=== PATIENT | female | born 1955 ===

== ENCOUNTER 2023-06-07 14:49 | Outpatient (CLI) | payer MEDICARE, SELFPAY ==
[2023-06-07 15:03] LABS: Basophils Percent Auto 0.4 % (0.2-1.2); Eosinophils Percent Auto 0.1 % (0-4.4); Hematocrit 44.5 % (37.0-47.0); Hemoglobin 14.8 g/dL (12.0-15.0); Immature Granulocyte Absolute 0.03 K/mm3 (0.00-0.031); Immature Granulocyte Percent A 0.4 % (0-0.5); Lymphocytes Percent Auto 30.4 % (18.3-44.2); Mean Corpuscular HGB Conc 33.3 g/dl (32-36); Mean Corpuscular Hemoglobin 27.8 pg (26-34); Mean Corpuscular Volume 83.5 fl (80-100); Mean Platelet Volume 9.2 fl (7.4-10.4); Monocytes Absolute Auto 0.4 K/mm3 (0.1-0.6); Monocytes Percent Auto 6.4 % (2.6-8.5); Neutrophils Absolute Auto 4.3 K/mm3 (1.3-6.7); Neutrophils Percent Auto 62.3 % (45.5-73.1); Platelet Count Result 191 k/mm3 (150-375); Red Blood Count 5.33 M/mm3 (4.2-5.4); Red Cell Distribution Width 12.4 % (11.5-14.5); White Blood Count 6.9 K/mm3 (4.5-10.0)
[2023-06-07 16:32] LABS: Alanine Aminotransferase 26 U/L (6-35); Albumin Level 4.5 g/dL (3.5-5.1); Alkaline Phosphatase 51 U/L (38-126); Anion Gap 7 mmol/L (8-16); Aspartate Amino Transferase 28 U/L (14-36); Bilirubin,Total 0.6 mg/dL (0.2-1.3); Blood Urea Nitrogen 19 mg/dL (7-17); Calcium 9.4 mg/dL (8.4-10.2); Carbon Dioxide 28 mmol/L (22-30); Chloride 102 mmol/L (98-107); Estimated Glomerular Filt Rate 55; Glucose 105 mg/dL (65-110); Potassium 3.9 mmol/L (3.4-5.0); Sodium 137 mmol/L (137-145)
[2023-06-10 11:45] LABS: Erythropoietin (EPO) 9.1 mIU/mL (2.6-18.5)
== END 2023-06-07 14:50 | disposition home or self-care (01) ==
PROVIDERS: PCP Internal Medicine; Visit Provider Internal Medicine Hematology & Oncology
DX: D75.1 Secondary polycythemia (principal)
CPT/HCPCS: 36415; 80053; 82668; 85025

== ENCOUNTER 2025-05-22 22:36 | Emergency (ER) | payer MEDICARE, SELFPAY ==
--- NOTE | ~2025-05-22 | CT_ITS ---
CT of the Abdomen and Pelvis: Indication: Pelvic pain, incontinence Technique: 2.5 mm axial scans were obtained through the abdomen and pelvis following intravenous adm inistration of 100 cc of Omnipaque 350. Dose reduction technique was used on this scan by utilizing a utomated exposure control and iterative reconstruction technique. The dose-length product (DLP) was 3 18.24 mGy-cm. Findings: Scans through the lung bases are unremarkable. The liver, spleen, pancreas, adrenals and kidneys are within normal limits. Cholecystectomy clips are present. No evidence of aortic aneurysm. No lymphadenopathy. No bowel obstruction or bowel wall thickening. There is no evidence to suggest acute appendicitis. Images through the pelvis were performed. Tiny bubbles of air present in the urinary bladder. 2.6 cm left adnexal cyst present. No ascites. Impression: 2.6 cm left adnexal cyst. Tiny bubble of air in the urinary bladder. Correlate for recent instrumentation. Reviewed, dictated and finalized at [facility]. Impression: 2.6 cm left adnexal cyst. Tiny bubble of air in the urinary bladder. Correlate for recent instrumentation .
[2025-05-22 22:51] VITALS: BP 135/81; PULSE 87; RESP 14; TEMP 36.5; O2SAT 100
--- NOTE | 2025-05-23 00:51 | ED.GENADULT ---
HPI - General Adult General Chief complaint: Urogenital-Female Stated complaint: uti Time Seen by Provider: 05/23/25 00:22 History of Present Illness HPI narrative: 70-year-old female presents emergency department for evaluation for issues with fecal incontinence and urinary incontinence. Patient states that she has had these issues for approximately the last 6 months. Patient has had follow-up with her physicians for this but states she has never had a pelvic exam or rectal exam. Patient states that she feels that she spends a lot of time on the toilet some mornings and feels that she has incontinence to stool afterwards. Patient also states she does have history of urinary incontinence. Patient does have prior history of bladder sling and has had follow-up gynecology for prolapse issues previously. Related Data Home Medications ?Medication ?Instructions ?Recorded ?Confirmed ?Last Taken ?Type alendronate 70 mg tablet 70 mg PO WEEKLY 12/13/22 12/13/22 Unknown History aspirin 81 mg tablet,delayed 81 mg PO DAILY 12/13/22 12/13/22 Unknown History release cholecalciferol (vitamin D3) 125 125 mcg PO DAILY 12/13/22 12/13/22 Unknown History mcg (5,000 unit) capsule cyanocobalamin (vitamin B-12) 5,000 mcg PO DAILY 12/13/22 12/13/22 Unknown History 5,000 mcg capsule ferrous sulfate 325 mg (65 mg 325 mg PO DAILY 12/13/22 12/13/22 Unknown History iron) tablet krill oil 500 mg capsule mg PO 12/13/22 12/13/22 Unknown History levothyroxine 50 mcg tablet 50 mcg PO DAILY 12/13/22 12/13/22 Unknown History (Synthroid) montelukast 10 mg tablet 10 mg PO DAILY 12/13/22 12/13/22 Unknown History rosuvastatin 20 mg tablet 20 mg PO DAILY 12/13/22 12/13/22 Unknown History vitamin E (dl, acetate) 180 mg 180 mg PO DAILY 12/13/22 12/13/22 Unknown History (400 unit) capsule Allergies Allergy/AdvReac Type Severity Reaction Status Date / Time No Known Allergies Allergy Verified 05/22/25 22:54 Review of Systems Review of Systems: All systems reviewed & are unremarkable except as noted in HPI and below PMFSH Past Medical History Medical History (Updated 05/23/25 @ 01:21 by Kevin Mcdonnell MD) Screening mammogram, encounter for Overactive bladder Hypertension High cholesterol Herpes Hx of [facility] use of blood thinners Osteoporosis Hypothyroidism Sinusitis Surgical History Surgical History History of appendectomy History of suburethral sling procedure (~1992) removal in 1993 History of bilateral breast reduction surgery (~1979) History of cholecystectomy (~1977) History of hernia repair (~1961) Family History Family History Father Hypertension Heart disease Social History Social History (Updated 12/13/22 @ 13:25 by EUGENIO [place]) Smoking status: Never smoker Alcohol intake: never Substance use: never Substance use type: does not use Living arrangements: other Additional living arrangements comments: Occupation/Education: retired Gender identity (if verbalized by the patient): Female Sexual Orientation (if Verbalized by the Patient): Straight or Heterosexual Exam Narrative: APPEARANCE: Well appearing, no pain, no distress, well-nourished. HEAD: normocephalic, atraumatic. EYES: PERRLA/EOMI, conjunctivae clear. NOSE: Normal no drainage EARS:TMS clear with good light reflex. THROAT: Pharynx clear, no exudate. NECK: Supple. No adenopathy, no masses. RESPIRATORY: Airway patent, respirations nonlabored. Clear to auscultation bilaterally, no rales, rhonchi, wheezing. CARDIOVASCULAR: Regular rate and rhythm without murmurs rubs or gallops. ABDOMINAL: Soft, nontender, nondistended, normal bowel sounds MUSCULOSKELETAL: Moves all extremities. Strength/ROM intact, No edema, No calf tenderness. NEURO: Alert. Cranial nerves II through XII intact. Good gait. Good coordination SKIN: Warm, dry. Normal Color Pelvic exam and rectal exam. No rectal or uterine prolapse Course Vital Signs Vital signs: Vital Signs Temperature 97.7 F 05/22/25 22:51 Pulse Rate 87 05/22/25 22:51 Respiratory Rate 14 05/22/25 22:51 Blood Pressure 135/81 05/22/25 22:51 Pulse Oximetry 100 05/22/25 22:51 Oxygen Delivery Room Air 05/22/25 22:51 Temperature 97.7 F 05/22/25 22:51 Pulse Rate 69 05/23/25 04:00 Respiratory Rate 17 05/23/25 04:00 Blood Pressure 118/79 05/23/25 04:00 Pulse Oximetry 100 05/23/25 04:00 Oxygen Delivery Room Air 05/22/25 22:51 Medical Decision Making MDM Narrative Medical decision making narrative: 70-year-old female presents emergency department for evaluation for rectal prolapse. Patient is also complaining of urinary symptoms. Patient is currently afebrile with no leukocytosis hemoglobin of 12.4. INR is 1.1, patient has no acute abnormalities on her CMP UA was positive for infection. CT of the pelvis does show some air within the bladder. No other acute abnormality. Patient was encouraged of close follow-up with GI and with her primary care physician and OB Gyne Differential Diagnosis Differential Diagnosis: Uterine prolapse, rectal prolapse, abscess, urinary tract infection colitis, diverticulitis Vital Signs Vital Signs: Vital Signs Temperature 97.7 F 05/22/25 22:51 Pulse Rate 87 05/22/25 22:51 Respiratory Rate 14 05/22/25 22:51 Blood Pressure 135/81 05/22/25 22:51 Pulse Oximetry 100 05/22/25 22:51 Oxygen Delivery Room Air 05/22/25 22:51 Temperature 97.7 F 05/22/25 22:51 Pulse Rate 69 05/23/25 04:00 Respiratory Rate 17 05/23/25 04:00 Blood Pressure 118/79 05/23/25 04:00 Pulse Oximetry 100 05/23/25 04:00 Oxygen Delivery Room Air 05/22/25 22:51 Lab Data Lab results reviewed: Yes I reviewed the patient's lab results. 05/23/25 01:22 05/23/25 01:22 Labs: Lab Results 05/23/25 05/23/25 Range/Units 00:39 01:22 WBC 7.3 (4.5-10.0) K/mm3 RBC 4.40 (4.2-5.4) M/mm3 Hgb 12.4 (12.0-15.0) g/dL Hct 37.9 (37.0-47.0) % MCV 86.1 (80-100) fl MCH 28.2 (26-34) pg MCHC 32.7 (32-36) g/dl RDW 13.5 (11.5-14.5) % Plt Count 171 (150-375) k/mm3 MPV 9.5 (7.4-10.4) fl Immature Gran % (Auto) 0.4 (0-0.5) % Neut % (Auto) 63.2 (45.5-73.1) % Lymph % (Auto) 26.3 (18.3-44.2) % Wallace % (Auto) 9.2 H (2.6-8.5) % Eos % (Auto) 0.4 (0-4.4) % Baso % (Auto) 0.5 (0.2-1.2) % Lymph # (Auto) 1.92 (0.9-3.2) K/mm3 Wallace # (Auto) 0.7 H (0.1-0.6) K/mm3 Eos # (Auto) 0.0 (0-0.3) K/mm3 Baso # (Auto) 0.0 (0.0-0.1) K/mm3 Abs Immat Gran (auto) 0.03 (0.00-0.031) K/mm3 Absolute Neuts (auto) 4.6 (1.3-6.7) K/mm3 Absolute Nucleated RBC 0.000 (0.0-0.012) K/mm3 Nucleated RBC % 0.0 (0.0-0.2) % PT 14.1 (11.1-14.7) Seconds INR 1.1 APTT 30.0 (22.3-36.8) Seconds Sodium 134 L (137-145) mmol/L Potassium 3.5 (3.4-5.0) mmol/L Chloride 102 (98-107) mmol/L Carbon Dioxide 25 (22-30) mmol/L Anion Gap 7 (4-12) mmol/L BUN 12 D (7-17) mg/dL Creatinine 0.84 (0.7-1.0) mg/dL Estim Creat Clear Calc Not Reportable Estimated GFR > 60 (59 - ) Glucose 101 (65-110) mg/dL Calcium 8.8 (8.4-10.2) mg/dL Total Bilirubin 0.4 (0.2-1.3) mg/dL AST 22 (14-36) U/L ALT 13 (6-35) U/L Alkaline Phosphatase 39 (38-126) U/L Total Protein 6.1 L (6.3-8.2) g/dL Albumin 3.7 (3.5-5.1) g/dL Urine Color Yellow (Yellow) Urine Appearance Clear (Clear) Urine pH 5.0 (5.0-9.0) Ur Specific [place] 1.022 (1.001-1.035) Urine Protein Negative (Negative) mg/dL Urine Glucose (UA) Negative (Negative) mg/dL Urine Ketones Trace H (Negative) mg/dL Ur Blood (Man) Negative (Negative) Urine Nitrate Negative (Negative) Urine Bilirubin Negative (Negative) Urine Urobilinogen 1.0 (<2.0) mg/dL Add Ur Microanalysis Reviewed Leukocyte Esterase Rfl 2+ H (Negative) HALINA/UL Urine RBC 0-2 (0-2) /hpf Urine WBC 21-50 H (0-3) /hpf Ur Squamous Epith Cells Occasional (Few) /hpf Urine Bacteria Trace /hpf Urine Casts 0-2 Imaging Data Radiologist's impression: Impressions Abdomen/Pelvis CT 05/23/25 05:29 Impression: 2.6 cm left adnexal cyst. Tiny bubble of air in the urinary bladder. Correlate for recent instrumentation. Discharge Plan Discharge Clinical Impression: Rectal prolapse, Acute UTI Patient Disposition: Home Condition: Stable Instructions: Antibiotic Form Additional Instructions: Antibiotic as directed for the urinary tract infection. Have close follow-up with gynecology and have close follow-up with GI. Patient Language: Welsh Prescriptions: New cephalexin 500 mg capsule 500 mg PO Q8H 7 Days Qty: 21 0RF No Action aspirin 81 mg tablet,delayed release (DR/EC) 81 mg PO DAILY levothyroxine [Synthroid] 50 mcg tablet 50 mcg PO DAILY montelukast 10 mg tablet 10 mg PO DAILY rosuvastatin 20 mg tablet 20 mg PO DAILY alendronate 70 mg tablet 70 mg PO WEEKLY ferrous sulfate 325 mg (65 mg iron) tablet 325 mg PO DAILY vitamin E (dl, acetate) 180 mg (400 unit) capsule 180 mg PO DAILY cyanocobalamin (vitamin B-12) 5,000 mcg capsule 5,000 mcg PO DAILY cholecalciferol (vitamin D3) 125 mcg (5,000 unit) capsule 125 mcg PO DAILY krill oil 500 mg capsule PO clobetasol 0.05 % cream 1 applic topical DAILY Qty: 30 1RF Follow-up/Referrals: El,MD Chiara [Primary Care Provider] -
[2025-05-23 01:10] LABS: Add Urine Microscopic? YES; Appearance Urine Clear (Clear); Bilirubin Urine Negative (Negative); Blood Urine Negative (Negative); Color Urine Yellow (Yellow); Glucose Urine UA Negative (Negative); Ketones Urine Trace mg/dL (Negative); Leukocyte Esterase Ur 2+ LEU/UL (Negative); Need Manual Microscopic Reviewed; Nitrate Urine Negative (Negative); Non Pathogenic Casts 0-2; Protein Urine Negative (Negative); RBC Urine 0-2 /hpf (0-2); Specific Grav Ur 1.022 (1.001-1.035); Squamous Epithelial Cell Urine Occasional /hpf (Few); WBC Urine 21-50 /hpf (0-3)
[2025-05-23 01:12] LABS: Bacteria Urine Trace /hpf
[2025-05-23 01:24] VITALS: BP 119/73; PULSE 68; RESP 17; O2SAT 97
[2025-05-23] MEDS: CEPHALEXIN 500 MG CAPSULE PO (01:29)
[2025-05-23 01:31] LABS: Basophils Percent Auto 0.5 % (0.2-1.2); Eosinophils Percent Auto 0.4 % (0-4.4); Hematocrit 37.9 % (37.0-47.0); Hemoglobin 12.4 g/dL (12.0-15.0); Immature Granulocyte Absolute 0.03 K/mm3 (0.00-0.031); Immature Granulocyte Percent A 0.4 % (0-0.5); Lymphocytes Absolute Auto 1.92 K/mm3 (0.9-3.2); Lymphocytes Percent Auto 26.3 % (18.3-44.2); Mean Corpuscular HGB Conc 32.7 g/dl (32-36); Mean Corpuscular Hemoglobin 28.2 pg (26-34); Mean Corpuscular Volume 86.1 fl (80-100); Mean Platelet Volume 9.5 fl (7.4-10.4); Monocytes Absolute Auto 0.7 K/mm3 (0.1-0.6); Monocytes Percent Auto 9.2 % (2.6-8.5); Neutrophils Absolute Auto 4.6 K/mm3 (1.3-6.7); Neutrophils Percent Auto 63.2 % (45.5-73.1); Platelet Count Result 171 k/mm3 (150-375); Red Cell Distribution Width 13.5 % (11.5-14.5); White Blood Count 7.3 K/mm3 (4.5-10.0)
[2025-05-23 01:40] LABS: Alanine Aminotransferase 13 U/L (6-35); Albumin Level 3.7 g/dL (3.5-5.1); Alkaline Phosphatase 39 U/L (38-126); Anion Gap 7 mmol/L (4-12); Aspartate Amino Transferase 22 U/L (14-36); Bilirubin,Total 0.4 mg/dL (0.2-1.3); Blood Urea Nitrogen 12 mg/dL (7-17); Calcium 8.8 mg/dL (8.4-10.2); Carbon Dioxide 25 mmol/L (22-30); Chloride 102 mmol/L (98-107); Estimated Glomerular Filt Rate > 60; Glucose 101 mg/dL (65-110); Potassium 3.5 mmol/L (3.4-5.0); Sodium 134 mmol/L (137-145); Total Protein 6.1 g/dL (6.3-8.2)
[2025-05-23 01:44] LABS: INR 1.1; Prothrombin Time 14.1 Seconds (11.1-14.7)
[2025-05-23 02:04] VITALS: BP 124/70; PULSE 73; RESP 16; O2SAT 97
[2025-05-23 04:00] VITALS: BP 118/79; PULSE 69; RESP 17; O2SAT 100
== END 2025-05-23 06:30 | disposition home or self-care (01) ==
PROVIDERS: Emergency Provider Emergency Medicine; PCP Internal Medicine
DX: K62.3 Rectal prolapse (principal); N39.0 Urinary tract infection, site not specified; I10 Essential (primary) hypertension; E78.00 Pure hypercholesterolemia, unspecified; E03.9 Hypothyroidism, unspecified; N32.81 Overactive bladder; M81.0 Age-related osteoporosis without current pathological fracture; Z90.49 Acquired absence of other specified parts of digestive tract; N94.89 Other specified conditions associated with female genital organs and menstrual cycle; Z79.82 Long term (current) use of aspirin; Z79.899 Other long term (current) drug therapy
CPT/HCPCS: 36415; 74177; 80053; 81001; 85025; 85610; 85730; 87086; 99284; A9270; Q9967